=== PATIENT | female | born 1930 | race Caucasian/White ===

== ENCOUNTER → 2016-12-25 | Outpatient (CLI) | payer MEDICARE, OTHER, MEDICAID ==
[~2016-12-25] MED LIST: AC325T PO; ACET-2041 PO; ACET650S13 RC; ACET650S15 RC; AGM875T PO; AZIT200S47 PO; BISA10SU58 RC; CITA10TA70 PO; CYCL10TA9 PO; DCS100C PO; ENLP5T PO; FENT1PAT6 TD; FEXO1TAB PO; FNT25TD TD; FRSM40T PO; FURO20TA4 PO; FURO40TA4; GFN600TCR PO; HYDR-3720 PO; HYDR-3820 PO; IBUP-1773 PO; INSU100V6 SQ; IPRA3AMP11 INH; IPRA3AMP19 IH; KCL10CCR; KCL10CCR PO; LORA0.5T34 PO; LORA10TA7 PO; LRT10T PO; MAG30ORA2 PO; MAGN400O7 PO; MENT71OI TP; METO-272 PO; METR500T PO; MGX400T PO; MTP100TCR PO; NF-VAL40T; NITR-65 PO; OMEP-10 PO; PNT40TEC PO; PRD10T PO; PRD20T PO; PRED5TAB PO; RT-ALBUINH IH; SERT50TA9 PO; TOLTA4 PO; TRAM50TA2 PO; TRM50T PO; VALS1TAB4 PO; VIT1CAPS9 PO
== END ==
PROVIDERS: ATTEND Family Medicine
DX: G31.1 Senile degeneration of brain, not elsewhere classified (principal); I11.0 Hypertensive heart disease with heart failure; I50.40 Unspecified combined systolic (congestive) and diastolic (congestive) heart failure
CPT/HCPCS: 82040

== ENCOUNTER → 2017-04-27 | Outpatient (CLI) | payer OTHER ==
[2017-04-27 14:26] LABS: BILIRUBIN,URINE NEGATIVE (NEGATIVE); KETONES,URINE NEGATIVE (NEGATIVE); LEUKOCYTE ESTERASE ,URINE 3+ (NEGATIVE); NITRITE,URINE NEGATIVE (NEGATIVE); PH,URINE 5 (5-9); PROTEIN,URINE 1+ (NEGATIVE); UROBILINOGEN,URINE NORMAL (NORMAL)
[2017-04-27 14:41] LABS: WBC,URINE >100 /HPF
== END ==
PROVIDERS: ATTEND Urology
DX: N39.0 Urinary tract infection, site not specified (principal)
CPT/HCPCS: 81000; 87077; 87088; 87186

== ENCOUNTER → 2017-07-21 | Outpatient (CLI) | payer MEDICARE, MEDICAID ==
[~2017-07-21] MED LIST changes: -METO-272 PO; +METO-370 PO
[2017-07-21 15:39] LABS: BILIRUBIN,URINE NEGATIVE (NEGATIVE); KETONES,URINE NEGATIVE (NEGATIVE); LEUKOCYTE ESTERASE ,URINE 3+ (NEGATIVE); NITRITE,URINE NEGATIVE (NEGATIVE); PH,URINE 6 (5-9); PROTEIN,URINE 1+ (NEGATIVE); UROBILINOGEN,URINE NORMAL (NORMAL)
[2017-07-21 15:51] LABS: SQUAMOUS EPITHELIAL CELL,UR RARE /HPF; WBC,URINE >100 /HPF
== END ==
PROVIDERS: ATTEND Family Medicine
DX: R53.83 Other fatigue (principal); R41.0 Disorientation, unspecified; R82.90 Unspecified abnormal findings in urine
CPT/HCPCS: 81000; 87088; 87186

== ENCOUNTER → 2017-12-18 | Outpatient (CLI) | payer MEDICARE, MEDICAID ==
[2017-12-18 13:03] LABS: BILIRUBIN,URINE NEGATIVE (NEGATIVE); CLARITY,URINE SLIGHTLY CLOUDY; COLOR,URINE YELLOW; GLUCOSE, URINE (UA) NEGATIVE (NEGATIVE); KETONES,URINE NEGATIVE (NEGATIVE); LEUKOCYTE ESTERASE ,URINE 3+ (NEGATIVE); NITRITE,URINE POSITIVE (NEGATIVE); PH,URINE 7 (5-9); PROTEIN,URINE 2+ (NEGATIVE); UROBILINOGEN,URINE NORMAL (NORMAL)
[2017-12-18 13:10] LABS: BACTERIA,URINE LARGE /HPF; RBC,URINE RARE /HPF; SQUAMOUS EPITHELIAL CELL,UR 0-2 /HPF; WBC,URINE >100 /HPF
== END ==
LOC: LABNPT 12:59
PROVIDERS: ATTEND Family Medicine
DX: R30.0 Dysuria (principal); R82.99 Other abnormal findings in urine
CPT/HCPCS: 81000; 87077; 87088; 87186